=== PATIENT | male | born 1985 | race Caucasian/White ===

== ENCOUNTER 2017-01-25 10:09 | Emergency (ER) | payer OTHER ==
[~2017-01-25] VITALS: Ht 170.2 cm; Wt 68.0 kg
[2017-01-25 10:20] VITALS: BP 116/69
== END 2017-01-25 10:28 ==
LOC: ER 10:12
DX: F11.10 Opioid abuse, uncomplicated (principal)
CPT/HCPCS: A4606; Z7610

== ENCOUNTER 2018-11-19 09:27 | Emergency (ER) | payer OTHER ==
[~2018-11-19] VITALS: Ht 170.2 cm; Wt 59.4 kg
--- NOTE | 2018-11-19 09:32 | NUR ---
patient bib [employer] c/o heroin and benzo withdrawal. on room air, breathing evenly and unlabored. kept comfortable. will continue to monitor accordingly. awaiting for MD for eval.
[2018-11-19] MEDS ORDERED: LORAZEPAM 1 MG TABLET ONE (09:38)
[2018-11-19] MEDS ORDERED: LORAZEPAM 1 MG TABLET PO ONE (10:00)
[2018-11-19 10:03] VITALS: BP 145/89
--- NOTE | 2018-11-19 10:03 | NUR ---
discharge patient in stable condition accompanied by [employer] in custody cleard for booking. in no apparent distress noted. food provided and water.
== END 2018-11-19 10:03 ==
LOC: ER 09:28
DX: F11.10 Opioid abuse, uncomplicated (principal); F13.10 Sedative, hypnotic or anxiolytic abuse, uncomplicated; Z02.89 Encounter for other administrative examinations